=== PATIENT | female | born 1985 | race Caucasian/White ===

== ENCOUNTER 2019-04-17 12:59 | Emergency (ER) | payer BC ==
--- NOTE | 2019-04-17 13:18 | EDM.PDOC ---
ED HPI GENERAL MEDICAL PROBLEM - General Chief Complaint: ENT Problem Stated Complaint: EAR INFECTION Time Seen by Provider: 04/17/19 13:02 Source of Information: Reports: Patient History Limitations: Reports: No Limitations - History of Present Illness INITIAL COMMENTS - FREE TEXT/NARRATIVE: History of present illness: []Patient has had ear pain for 3 days and was seen in clinic and put on amoxicillin for an otitis media. She states her ear pain is not improving and is getting worse. She denies any fevers, chills or any other symptoms. Review of systems: As per history of present illness and below otherwise all systems reviewed and negative. Past medical history: As per history of present illness and as reviewed below otherwise noncontributory. Surgical history: As per history of present illness and as reviewed below otherwise noncontributory. Social history: No reported history of drug or alcohol abuse. Family history: As per history of present illness and as reviewed below otherwise noncontributory. Physical exam: General: Well developed, well nourished in NAD HEENT: Atraumatic, normocephalic, pupils reactive, negative for conjunctival pallor or scleral icterus, mucous membranes moist, throat clear, neck supple, nontender, trachea midline. TMs are clear she has no adenopathy there is no mastoid tenderness on the left mastoid. Lungs: Clear to auscultation, breath sounds equal bilaterally, chest nontender. Heart: S1S2, regular, negative for clicks, rubs, or JVD. Abdomen: NABS, Soft, nondistended, nontender. Negative for masses or hepatosplenomegaly. Negative for costovertebral tenderness. Pelvis: Stable nontender. Genitourinary: Deferred. Rectal: Deferred. Extremities: Atraumatic, negative for cords or calf pain. Neurovascular unremarkable. Neuro: Awake, alert, oriented. Cranial nerves II through XII unremarkable. Cerebellum unremarkable. Motor and sensory unremarkable throughout. Exam nonfocal. Skin:warm and dry Diagnostics: None Therapeutics: None ED Course: stAble Impression: Left ear pain Prescriptions: prednisone 5 days Plan: Take meds as directed, follow up with your primary care physician, return to ER if symptoms worsen or change. Definitive disposition and diagnosis as appropriate pending reevaluation and review of above. - Related Data Allergies Allergy/AdvReac Type Severity Reaction Status Date / Time carvedilol [From Coreg] Allergy Hives Verified 04/17/19 13:14 Home Meds: Home Meds predniSONE [Prednisone] 20 mg PO DAILY #5 tablet 04/17/19 [Rx] ED ROS ENT - Review of Systems Review Of Systems: See Below ED EXAM, ENT - Physical Exam Exam: See Below Departure - Departure Time of Disposition: 13:15 Disposition: Home, Self-Care 01 Condition: Good Clinical Impression: Left ear pain - Discharge Information *PRESCRIPTION DRUG MONITORING PROGRAM REVIEWED*: No *COPY OF PRESCRIPTION DRUG MONITORING REPORT IN PATIENT KIRILL: No Referrals: PCP,Unknown [Primary Care Provider] - Additional Instructions: The following information is given to patients seen in the emergency department who are being discharged to home. This information is to outline your options for follow-up care. We provide all patients seen in our emergency department with a follow-up referral. The need for follow-up, as well as the timing and circumstances, are variable depending upon the specifics of your emergency department visit. If you don't have a primary care physician on staff, we will provide you with a referral. We always advise you to contact your personal physician following an emergency department visit to inform them of the circumstance of the visit and for follow-up with them and/or the need for any referrals to a consulting specialist. The emergency department will also refer you to a specialist when appropriate. This referral assures that you have the opportunity for follow-up care with a specialist. All of these measure are taken in an effort to provide you with optimal care, which includes your follow-up. Under all circumstances we always encourage you to contact your private physician who remains a resource for coordinating your care. When calling for follow-up care, please make the office aware that this follow-up is from your recent emergency room visit. If for any reason you are refused follow-up, please contact the Emergency Department at and asked to speak to the emergency department charge nurse. Take meds as directed, follow up with your primary care physician, return to ER if symptoms worsen or change. Primary Care [address] [place] [id number]
== END 2019-04-17 13:37 | disposition home or self-care (01) ==
LOC: MW.ED 12:59
DX: H92.02 Otalgia, left ear (principal); Z79.899 Other long term (current) drug therapy; Z88.8 Allergy status to other drugs, medicaments and biological substances
CPT/HCPCS: 99282

== ENCOUNTER 2019-07-10 08:10 | Day surgery (SDC) | payer BC ==
--- NOTE | 2019-07-10 08:25 | EDM.PDOC ---
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 Review of systems: As per history of present illness and below otherwise all systems reviewed and negative. Past medical history: As per history of present illness and as reviewed below otherwise noncontributory. Surgical history: As per history of present illness and as reviewed below otherwise noncontributory. Social history: No reported history of drug or alcohol abuse. Family history: As per history of present illness and as reviewed below otherwise noncontributory. Physical exam: HEENT: Atraumatic, normocephalic, pupils reactive, negative for conjunctival pallor or scleral icterus, mucous membranes moist, throat clear, neck supple, nontender, trachea midline. Lungs: Clear to auscultation, breath sounds equal bilaterally, chest nontender. Heart: S1S2, regular, negative for clicks, rubs, or JVD. Abdomen: Soft, nondistended, nontender. Negative for masses or hepatosplenomegaly. Negative for costovertebral tenderness. Pelvis: Stable nontender. Genitourinary: Deferred. Rectal: Deferred. Extremities: Atraumatic, negative for cords or calf pain. Neurovascular unremarkable. Neuro: Awake, alert, oriented. Cranial nerves II through XII unremarkable. Cerebellum unremarkable. Motor and sensory unremarkable throughout. Exam nonfocal. Diagnostics: CBC quantitative beta PT/INR type and screen pelvic ultrasound Therapeutics: None Impression: #1 uterine mass #2 rising hCG Definitive disposition and diagnosis as appropriate pending reevaluation and review of above. - Related Data Allergies Allergy/AdvReac Type Severity Reaction Status Date / Time carvedilol [From Coreg] Allergy Hives Verified 07/10/19 08:24 Home Meds: Home Meds FLUoxetine HCl [Prozac] 40 mg PO DAILY 07/10/19 [History] Labetalol [Normodyne] 100 mg PO BID 07/10/19 [History] Past Medical History Cardiovascular History: Reports: Hypertension - Infectious Disease History Infectious Disease History: Reports: None Social & Family History - Family History Family Medical History: Noncontributory - Caffeine Use Caffeine Use: Reports: None ED ROS GENERAL - Review of Systems Review Of Systems: Comprehensive ROS is negative, except as noted in HPI. ED EXAM, GENERAL - Physical Exam Exam: See Below (See dictation) Course - Vital Signs Last Recorded V/S: Last Vital Signs Temp 36.3 C 07/10/19 08:26 Pulse 87 07/10/19 08:26 Resp 17 07/10/19 08:26 BP 142/88 H 07/10/19 08:26 Pulse Ox 98 07/10/19 08:26 - Orders/Labs/Meds Orders: Active Orders 24 hr Category Date Time Status Patient Status [ADT] Routine ADT 07/10/19 10:02 Active Antiembolic Devices [RC] PER UNIT ROUTINE Care 07/10/19 10:03 Active Verify Patient Consent Obtain [RC] PER UNIT ROUTINE Care 07/10/19 10:02 Active Vital Signs [RC] PER UNIT ROUTINE Care 07/10/19 10:02 Active TYPE AND SCREEN [BBK] Routine Lab 07/10/19 10:02 Ordered Sodium Chloride 0.9% [Normal Saline] Med 07/10/19 10:02 Active 10 ml IV ASDIRECTED PRN Sodium Chloride 0.9% [Saline Flush] Med 07/10/19 10:02 Active 10 ml FLUSH ASDIRECTED PRN Sodium Chloride 0.9% [Saline Flush] Med 07/10/19 10:02 Active 2.5 ml FLUSH ASDIRECTED PRN Peripheral IV Insertion Adult [OM.PC] Urgent Oth 07/10/19 10:02 Ordered Sequential Compression Device [OM.PC] Per Unit Routine Oth 07/10/19 10:02 Ordered Medication Orders Sodium Chloride (Saline Flush) 10 ml FLUSH ASDIRECTED PRN PRN Reason: Keep Vein Open Sodium Chloride (Saline Flush) 2.5 ml FLUSH ASDIRECTED PRN PRN Reason: Keep Vein Open Sodium Chloride (Normal Saline) 10 ml IV ASDIRECTED PRN PRN Reason: IV Use Labs: Laboratory Tests 07/10/19 07/10/19 07/10/19 Range/Units 08:32 08:32 08:32 WBC 9.57 (4.0-11.0) K/uL RBC 4.15 L (4.30-5.90) M/uL Hgb 12.3 (12.0-16.0) g/dL Hct 36.8 (36.0-46.0) % MCV 88.7 (80.0-98.0) fL MCH 29.6 (27.0-32.0) pg MCHC 33.4 (31.0-37.0) g/dL RDW Std Deviation 44.7 (28.0-62.0) fl RDW Coeff of Krissy 14 (11.0-15.0) % Plt Count 287 (150-400) K/uL MPV 10.00 (7.40-12.00) fL Add Manual Diff YES Neutrophils % (Manual) 59 (48.0-80.0) % Band Neutrophils % 7 % Lymphocytes % (Manual) 27 (16.0-40.0) % Monocytes % (Manual) 3 (0.0-15.0) % Eosinophils % (Manual) 2 (0.0-7.0) % Basophils % (Manual) 2 H (0.0-1.5) % Nucleated RBC % 0.0 /100WBC Absolute Seg Neuts 5.6 (1.4-5.7) Band Neutrophils # 0.7 Lymphocytes # (Manual) 2.6 H (0.6-2.4) Monocytes # (Manual) 0.3 (0.0-0.8) Eosinophils # (Manual) 0.2 (0.0-0.7) Basophils # (Manual) 0.2 H (0.0-0.1) Nucleated RBCs # 0 K/uL INR 0.96 HCG, Quant 54002.0 mIU/mL Blood Type Antibody Screen 07/10/19 Range/Units 08:32 WBC (4.0-11.0) K/uL RBC (4.30-5.90) M/uL Hgb (12.0-16.0) g/dL Hct (36.0-46.0) % MCV (80.0-98.0) fL MCH (27.0-32.0) pg MCHC (31.0-37.0) g/dL RDW Std Deviation (28.0-62.0) fl RDW Coeff of Krissy (11.0-15.0) % Plt Count (150-400) K/uL MPV (7.40-12.00) fL Add Manual Diff Neutrophils % (Manual) (48.0-80.0) % Band Neutrophils % % Lymphocytes % (Manual) (16.0-40.0) % Monocytes % (Manual) (0.0-15.0) % Eosinophils % (Manual) (0.0-7.0) % Basophils % (Manual) (0.0-1.5) % Nucleated RBC % /100WBC Absolute Seg Neuts (1.4-5.7) Band Neutrophils # Lymphocytes # (Manual) (0.6-2.4) Monocytes # (Manual) (0.0-0.8) Eosinophils # (Manual) (0.0-0.7) Basophils # (Manual) (0.0-0.1) Nucleated RBCs # K/uL INR HCG, Quant mIU/mL Blood Type O POSITIVE Antibody Screen NEGATIVE Meds: Medications Generic Name Dose Route Start Last Admin Trade Name Freq PRN Reason Stop Dose Admin Sodium Chloride 10 ml 07/10/19 10:02 Saline Flush FLUSH ASDIRECTED PRN Keep Vein Open Sodium Chloride 2.5 ml 07/10/19 10:02 Saline Flush FLUSH ASDIRECTED PRN Keep Vein Open Sodium Chloride 10 ml 07/10/19 10:02 Normal Saline IV ASDIRECTED PRN IV Use Discontinued Medications Generic Name Dose Route Start Last Admin Trade Name Freq PRN Reason Stop Dose Admin Doxycycline Hyclate 200 mg 07/10/19 10:04 Vibramycin PO 07/10/19 10:05 ONETIME ONE Departure - Departure Time of Disposition: 10:11 Disposition: Still A Patient 30 Condition: Good Clinical Impression: Uterine mass - Discharge Information Referrals: Marianne Huerta MD [Primary Care Provider] - Forms: ED Department Discharge
--- NOTE | 2019-07-10 09:50 | US ---
INDICATION: Cramping in known failed . Comparison: No comparison studies are available. TECHNIQUE: Real-time dean-scale imaging of the pelvis was performed. FINDINGS: Presence of intrauterine gestational sac measuring 2.7 cm. There is no pole or yolk sac seen in the gestational sac. Echogenic material within the gestational sac may represent hemorrhage and/or debris. Both ovaries are seen and appear unremarkable. Normal arterial venous blood flow ovaries. No adnexal mass or free fluid visualized. IMPRESSION: 1. 2.7 cm intrauterine gestational sac. No pole or yolk sac seen heterogeneous material in the gestational sac may represent hemorrhage and/or debris. Findings most likely would reflect a failed . Ovaries are seen and appear unremarkable. No adnexal mass or free fluid. Dictated by Gladys Holbrook MD @ Jul 10 2019 9:44AM Signed by Dr. Gladys Holbrook @ Jul 10 2019 9:48AM
[2019-07-10] MEDS ORDERED: Sodium Chloride 0.9% 10 ML SDV IV PRN (10:02)
[2019-07-10] MEDS ORDERED: Sodium Chloride 0.9% 10 ML Syringe FLUSH PRN (10:02)
[2019-07-10] MEDS ORDERED: Sodium Chloride 0.9% 2.5 ML Syringe FLUSH PRN (10:02)
[2019-07-10] MEDS ORDERED: Doxycycline 100 MG Cap PO ONE ×2 (10:04→11:53)
[2019-07-10] MEDS ORDERED: Propofol 200 MG/20 ML SDV ONE (10:28)
[2019-07-10] MEDS ORDERED: fentaNYL 100 MCG/2 ML SDV ONE ×2 (10:28→11:43)
[2019-07-10] MEDS ORDERED: Midazolam 1 MG/ML 2 ML SDV ONE (10:28)
[2019-07-10] MEDS ORDERED: Dexamethasone 4 MG/ML 5 ML MDV ONE (10:30)
[2019-07-10] MEDS ORDERED: Lidocaine 2% 5 ML SDV ONE (10:30)
[2019-07-10] MEDS ORDERED: Ketorolac 30 MG/ML SDV ONE (10:30)
[2019-07-10] MEDS ORDERED: Ondansetron 4 MG/2 ML SDV ONE (10:30)
[2019-07-10] MEDS ORDERED: Glycopyrrolate 0.2 MG/ML SDV ONE (10:30)
[2019-07-10] MEDS ORDERED: fentaNYL 100 MCG/2 ML SDV IVPUSH PRN (10:40)
[2019-07-10] MEDS ORDERED: Ondansetron 4 MG/2 ML SDV IVPUSH PRN (10:40)
--- NOTE | 2019-07-10 10:40 | PCM.PREANE ---
Preanesthetic Assessment - Anesthesia/Transfusion/Family Hx Anesthesia History: Prior Anesthesia Without Reaction Family History of Anesthesia Reaction: No - Review of Systems General: No Symptoms Pulmonary: No Symptoms Cardiovascular: No Symptoms, Other Neurological: No Symptoms Other: Reports: Anxiety - Physical Assessment NPO Status Date: 07/10/19 NPO Status Time: 00:05 Vital Signs: Last Vital Signs Temp 36.3 C 07/10/19 08:26 Pulse 87 07/10/19 08:26 Resp 17 07/10/19 08:26 BP 142/88 H 07/10/19 08:26 Pulse Ox 98 07/10/19 08:26 Height: 1.63 m Weight: 108.862 kg ASA Class: 2E - Lab Values: Laboratory Last Values WBC 9.57 K/uL (4.0-11.0) 07/10/19 08:32 RBC 4.15 M/uL (4.30-5.90) L 07/10/19 08:32 Hgb 12.3 g/dL (12.0-16.0) 07/10/19 08:32 Hct 36.8 % (36.0-46.0) 07/10/19 08:32 MCV 88.7 fL (80.0-98.0) 07/10/19 08:32 MCH 29.6 pg (27.0-32.0) 07/10/19 08:32 MCHC 33.4 g/dL (31.0-37.0) 07/10/19 08:32 RDW Std Deviation 44.7 fl (28.0-62.0) 07/10/19 08:32 RDW Coeff of Krissy 14 % (11.0-15.0) 07/10/19 08:32 Plt Count 287 K/uL (150-400) 07/10/19 08:32 MPV 10.00 fL (7.40-12.00) 07/10/19 08:32 Add Manual Diff YES 07/10/19 08:32 Neutrophils % (Manual) 59 % (48.0-80.0) 07/10/19 08:32 Band Neutrophils % 7 % 07/10/19 08:32 Lymphocytes % (Manual) 27 % (16.0-40.0) 07/10/19 08:32 Monocytes % (Manual) 3 % (0.0-15.0) 07/10/19 08:32 Eosinophils % (Manual) 2 % (0.0-7.0) 07/10/19 08:32 Basophils % (Manual) 2 % (0.0-1.5) H 07/10/19 08:32 Nucleated RBC % 0.0 /100WBC 07/10/19 08:32 Absolute Seg Neuts 5.6 (1.4-5.7) 07/10/19 08:32 Band Neutrophils # 0.7 07/10/19 08:32 Lymphocytes # (Manual) 2.6 (0.6-2.4) H 07/10/19 08:32 Monocytes # (Manual) 0.3 (0.0-0.8) 07/10/19 08:32 Eosinophils # (Manual) 0.2 (0.0-0.7) 07/10/19 08:32 Basophils # (Manual) 0.2 (0.0-0.1) H 07/10/19 08:32 Nucleated RBCs # 0 K/uL 07/10/19 08:32 INR 0.96 07/10/19 08:32 HCG, Quant 72828.0 mIU/mL 07/10/19 08:32 Blood Type O POSITIVE 07/10/19 08:32 Antibody Screen NEGATIVE 07/10/19 08:32 - Allergies Allergies/Adverse Reactions: Allergies Allergy/AdvReac Type Severity Reaction Status Date / Time carvedilol [From Coreg] Allergy Hives Verified 07/10/19 08:24 - Anesthesia Plan Beta Jean Pierre: Labetalol - Acknowledgements Anesthesia Type Planned: General Anesthesia Pt an Appropriate Candidate for the Planned Anesthesia: Yes Alternatives and Risks of Anesthesia Discussed w Pt/Guardian: Yes Pt/Guardian Understands and Agrees with Anesthesia Plan: Yes Additional Comments: History of hypertension treated with labetolol. History of anxiety. PreAnesthesia Questionnaire - Past Health History Medical/Surgical History: Denies Medical/Surgical History Cardiovascular History: Reports: Hypertension - Infectious Disease History Infectious Disease History: Reports: None - SUBSTANCE USE Smoking Status *Q: Never Smoker - HOME MEDS Home Medications: Home Meds FLUoxetine HCl [Prozac] 40 mg PO DAILY 07/10/19 [History] Labetalol [Normodyne] 100 mg PO BID 07/10/19 [History] - CURRENT (IN HOUSE) MEDS Current Meds: Current Medications Sodium Chloride (Saline Flush) 10 ml FLUSH ASDIRECTED PRN PRN Reason: Keep Vein Open Sodium Chloride (Saline Flush) 2.5 ml FLUSH ASDIRECTED PRN PRN Reason: Keep Vein Open Sodium Chloride (Normal Saline) 10 ml IV ASDIRECTED PRN PRN Reason: IV Use Discontinued Medications Dexamethasone (Dexamethasone) Confirm Administered Dose 20 mg .ROUTE .STK-MED ONE Stop: 07/10/19 10:31 Doxycycline Hyclate (Vibramycin) 200 mg PO ONETIME ONE Stop: 07/10/19 10:05 Fentanyl (Sublimaze) Confirm Administered Dose 100 mcg .ROUTE .STK-MED ONE Stop: 07/10/19 10:29 Glycopyrrolate (Robinul) Confirm Administered Dose 0.2 mg .ROUTE .STK-MED ONE Stop: 07/10/19 10:31 Ketorolac Tromethamine (Toradol) Confirm Administered Dose 30 mg .ROUTE .STK- MED ONE Stop: 07/10/19 10:31 Lidocaine (Xylocaine-Mpf 2%) Confirm Administered Dose 5 ml .ROUTE .STK-MED ONE Stop: 07/10/19 10:31 Midazolam HCl (Versed 1 Mg/Ml) Confirm Administered Dose 2 mg .ROUTE .STK-MED ONE Stop: 07/10/19 10:29 Ondansetron HCl (Zofran) Confirm Administered Dose 4 mg .ROUTE .STK-MED ONE Stop: 07/10/19 10:31 Propofol (Diprivan 20 Ml) Confirm Administered Dose 200 mg .ROUTE .STK-MED ONE Stop: 07/10/19 10:29 Succinylcholine Chloride (Succinylcholine Chloride) Confirm Administered Dose 200 mg .ROUTE .STK-MED ONE Stop: 07/10/19 10:31
[2019-07-10] MEDS ORDERED: Sodium Chloride 0.9% 1,000 ML IV ONE (10:45)
[2019-07-10] MEDS ORDERED: Acetaminophen/HYDROcodone 325-5 MG Tab PO PRN (11:52)
--- NOTE | 2019-07-10 11:56 | PCM.OPNOTE ---
- General Post-Op/Procedure Note Date of Surgery/Procedure: 07/10/19 Operative Procedure(s): Dilatation , suction and curettage Findings: Moderate product of conception Pre Op Diagnosis: Missed r/o molar Post-Op Diagnosis: Missed , r/o molar Primary Surgeon: Marianne Huerta Anesthesia Provider: Faustino Thompson Fluid Replacement, Intraop: 800 Output, Urine Amount: 0 EBL in mLs: 100 Complications: None Condition: Good Free Text/Narrative:: 9 week sized uterus
--- NOTE | 2019-07-10 12:24 | PCM.POSTAN ---
POST ANESTHESIA ASSESSMENT - MENTAL STATUS Mental Status: Alert - VITAL SIGNS Vital Signs: Last Vital Signs Temp 36.9 C 07/10/19 11:52 Pulse 101 H 07/10/19 12:07 Resp 12 07/10/19 12:07 BP 126/67 07/10/19 12:07 Pulse Ox 100 07/10/19 12:07 - RESPIRATORY Respiratory Status: Respiratory Rate WNL - CARDIOVASCULAR CV Status: Pulse Rate WNL - GASTROINTESTINAL GI Status: No Symptoms - POST OP HYDRATION Hydration Status: Adequate & Stable
--- NOTE | 2019-07-10 13:48 | OR ---
SURGEON: ROSY UGALDE DATE OF PROCEDURE:07/10/2019 PREOPERATIVE DIAGNOSIS: 34-year-old with missed r/o molar . POSTOPERATIVE DIAGNOSIS: 34-year-old with missed r/o molar . PROCEDURE: Suction dilatation and curettage. IV FLUIDS: 800. ESTIMATED BLOOD LOSS: 100. URINE OUTPUT: 0 COMPLICATIONS: None. NOTES AND FINDINGS: Examination under anesthesia showed about 9- to 10-week size uterus. Moderate products of conception were retrieved from the D and C. BRIEF HISTORY: The patient is a 34-year-old who is being followed for of unknown viability. The patient had an ultrasound that showed intrauterine gestational sac with a complex structure within the uterus. Beta-hCG was done, which was rising appropriately. She had a repeat ultrasound done, which still showed the same finding. The patient then called a week after and said she was having severe cramping. Ultrasound was done. At this point, there was just a complex structure within the uterus that was found. As a result of this, the patient was offered suction D and C. The patient was explained the risks, benefits, and alternatives, and she decided to proceed. PROCEDURE IN DETAIL: The patient was taken to the operating room where general anesthesia was done without difficulty. She was prepared and draped in the dorsal lithotomy position with Gurinder stirrups. Sterile speculum was used to expose the cervix, and the cervix was dilated to accommodate the 8 mm curved curette. The suction was done with outward circular motion. The product of conception was evacuated from the uterus. Then, the size 4 curette was used to curette all the 4 villasenor of the uterus. Again, the suction was then placed again to evacuate the products after which the Allis was removed. The speculum was removed. Hemostasis was noted. The patient tolerated the procedure well and was left OR in stable condition. The patient received doxycycline before and after the procedure. IGNACIA LUNA /[id number] LEATHA
[2019-07-10] MEDS ORDERED: Ketamine 500 mg/10 ML MDV ONE (17:16)
== END 2019-07-10 13:59 | disposition home or self-care (01) ==
LOC: MW.ED 08:10 → MW.SDS 10:28 → MW.OB 12:08 → MW.SDS 13:59
PROVIDERS: ATTEND Obstetrics & Gynecology
DX: O02.1 Missed abortion (principal); I10 Essential (primary) hypertension; Z79.899 Other long term (current) drug therapy; Z79.82 Long term (current) use of aspirin; Z88.8 Allergy status to other drugs, medicaments and biological substances
CPT/HCPCS: 36415; 59820; 76801; 84702; 85025; 85610; 86850; 86900; 86901; A9270; J0330; J1100; J1885; J2001; J2250; J2405; J2704; J3010; J3490; J7040; 88305; 99285; 99285-25; J7030

== ENCOUNTER 2019-10-21 07:40 | Day surgery (SDC) | payer BC ==
[~2019-10-21 07:40] MED LIST: Lactated Ringers 1,000 ML IV SCH; Sodium Chloride 0.9% 10 ML SDV IV PRN; Sodium Chloride 0.9% 10 ML Syringe FLUSH PRN; Sodium Chloride 0.9% 2.5 ML Syringe FLUSH PRN
--- NOTE | 2019-10-21 08:34 | PCM.PREANE ---
Preanesthetic Assessment - Anesthesia/Transfusion/Family Hx Anesthesia History: Prior Anesthesia Without Reaction Family History of Anesthesia Reaction: No Transfusion History: No Prior Transfusion(s) Intubation History: Unknown - Review of Systems General: No Symptoms Pulmonary: No Symptoms Cardiovascular: No Symptoms Gastrointestinal: No Symptoms Neurological: No Symptoms Other: Reports: None - Physical Assessment Height: 5 ft 4 in Weight: 113.398 kg ASA Class: 2 Mental Status: Alert & Oriented x3 Airway Class: Mallampati = 2 Dentition: Reports: Normal Dentition Thyro-Mental Finger Breadths: 3 Mouth Opening Finger Breadths: 3 ROM/Head Extension: Full Lungs: Clear to Auscultation, Normal Respiratory Effort Cardiovascular: Regular Rate, Regular Rhythm - Allergies Allergies/Adverse Reactions: Allergies Allergy/AdvReac Type Severity Reaction Status Date / Time carvedilol [From Coreg] Allergy Hives Verified 10/18/19 08:58 - Blood Blood Available: No - Anesthesia Plan Pre-Op Medication Ordered: None - Acknowledgements Anesthesia Type Planned: General Anesthesia Pt an Appropriate Candidate for the Planned Anesthesia: Yes Alternatives and Risks of Anesthesia Discussed w Pt/Guardian: Yes Pt/Guardian Understands and Agrees with Anesthesia Plan: Yes PreAnesthesia Questionnaire - Past Health History Medical/Surgical History: Denies Medical/Surgical History HEENT History: Reports: Other (See Below) Other HEENT History: wears glasses Cardiovascular History: Reports: Hypertension 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: Polycystic Ovaries, Psychiatric History: Reports: Anxiety Endocrine/Metabolic History: Reports: Obesity/BMI 30+ (BMI 42.9) - Infectious Disease History Infectious Disease History: Reports: None - Past Surgical History Head Surgeries/Procedures: Reports: None Female Surgical History: Reports: Section (x2), D&C - SUBSTANCE USE Smoking Status *Q: Never Smoker Recreational Drug Use History: No - HOME MEDS Home Medications: Home Meds FLUoxetine HCl [Prozac] 40 mg PO DAILY 07/10/19 [History] Labetalol [Normodyne] 100 mg PO BID 10/18/19 [History] No122/Iron/Folic Acid [ Multi Tablet] 1 tab PO DAILY 10/18/19 [ History] - CURRENT (IN HOUSE) MEDS Current Meds: Current Medications Lactated Ringer's (Ringers, Lactated) 1,000 mls @ 500 mls/hr IV BOLUS MANUEL Last Admin: 10/21/19 08:15 Dose: 500 mls/hr Sodium Chloride (Saline Flush) 10 ml FLUSH ASDIRECTED PRN PRN Reason: Keep Vein Open Sodium Chloride (Saline Flush) 2.5 ml FLUSH ASDIRECTED PRN PRN Reason: Keep Vein Open Sodium Chloride (Normal Saline) 10 ml IV ASDIRECTED PRN PRN Reason: IV Use Sodium Chloride (Saline Flush) 10 ml FLUSH ASDIRECTED PRN PRN Reason: Keep Vein Open Sodium Chloride (Saline Flush) 2.5 ml FLUSH ASDIRECTED PRN PRN Reason: Keep Vein Open Sodium Chloride (Normal Saline) 10 ml IV ASDIRECTED PRN PRN Reason: IV Use
[2019-10-21] MEDS ORDERED: Ondansetron 4 MG/2 ML SDV ONE (09:04)
[2019-10-21] MEDS ORDERED: Midazolam 1 MG/ML 2 ML SDV ONE (09:04)
[2019-10-21] MEDS ORDERED: Propofol 200 MG/20 ML SDV ONE (09:04)
[2019-10-21] MEDS ORDERED: fentaNYL 100 MCG/2 ML SDV ONE ×2 (09:04→09:28)
[2019-10-21] MEDS ORDERED: Dexamethasone 4 MG/ML 5 ML MDV ONE (09:28)
[2019-10-21] MEDS ORDERED: fentaNYL 100 MCG/2 ML SDV IVPUSH PRN (09:40)
[2019-10-21] MEDS ORDERED: Ketorolac 30 MG/ML SDV ONE (09:45)
--- NOTE | 2019-10-21 10:13 | PCM.OPNOTE ---
- General Post-Op/Procedure Note Date of Surgery/Procedure: 10/21/19 Operative Procedure(s): Hysteroscopy D & C Findings: Normal sized anteverted uterus Endometrium appears normal with the right side with more proliferative endometrium noted , no distinct lesion noted Pre Op Diagnosis: Abnormal uterine bleeding. Suspected endometrial polyp Post-Op Diagnosis: Abnormal uterine bleeding Anesthesia Technique: General ET Tube Primary Surgeon: Marianne Huerta Anesthesia Provider: Carlos Pink Pathology: Endometrial polyp Fluid Replacement, Intraop: 800 EBL in mLs: 5 Complications: None Condition: Good
--- NOTE | 2019-10-21 10:14 | PCM.POSTAN ---
POST ANESTHESIA ASSESSMENT - MENTAL STATUS Mental Status: Alert, Oriented - VITAL SIGNS Vital Signs: Last Vital Signs Temp 36.4 C 10/21/19 09:56 Pulse 75 10/21/19 10:11 Resp 15 10/21/19 10:11 BP 164/88 H 10/21/19 10:11 Pulse Ox 96 10/21/19 10:11 - RESPIRATORY Respiratory Status: Respiratory Rate WNL, Airway Patent, O2 Saturation Stable - CARDIOVASCULAR CV Status: Pulse Rate WNL, Blood Pressure Stable - GASTROINTESTINAL GI Status: No Symptoms - PAIN Pain Score: 0 - POST OP HYDRATION Hydration Status: Adequate & Stable
[2019-10-21] MEDS ORDERED: Acetaminophen/HYDROcodone 325-5 MG Tab PO PRN (10:17)
--- NOTE | 2019-10-21 13:00 | PCM48HPAN ---
Post Anesthesia Note - EVALUATION WITHIN 48HRS OF ANESTHETIC Vital Signs in Normal Range: Yes Patient Participated in Evaluation: Yes Respiratory Function Stable: Yes Airway Patent: Yes Cardiovascular Function Stable: Yes Hydration Status Stable: Yes Pain Control Satisfactory: Yes Nausea and Vomiting Control Satisfactory: Yes Mental Status Recovered: Yes Vital Signs: Last Vital Signs Temp 36 C L 10/21/19 10:20 Pulse 76 10/21/19 10:50 Resp 16 10/21/19 10:50 BP 146/83 H 10/21/19 10:50 Pulse Ox 96 10/21/19 10:50 - COMMENTS/OBSERVATIONS Free Text/Narrative:: No anesthesia problems
--- NOTE | 2019-10-21 15:18 | OR ---
SURGEON: ROSY UGALDE DATE OF PROCEDURE:10/21/2019 PREOPERATIVE DIAGNOSIS: A 34-year-old with abnormal uterine bleeding. POSTOPERATIVE DIAGNOSIS: A 34-year-old with abnormal uterine bleeding. PROCEDURE: Hysteroscopy, D and C. ESTIMATED BLOOD LOSS: 5 mL. ANESTHESIA: General. COMPLICATION: None. FLUID DEFICIT: 350 of NS. BRIEF HISTORY: She is 34-year-old who had a history of D and C in July for missed AB. She had normal period in August. In September, she said she had some bleeding and continued to have spotting and bleeding never stopped, so the patient had an ultrasound done which showed some echogenicity in the right cornua of the uterus. As a result of this, a saline ultrasound was done, like a 1.5 cm echogenicity was found in the endometrial cavity. I am unsure whether it had an attachment to the endometrium. As a result of this, the patient was counseled, consented for a D and C, hysteroscopy. She understood risks, benefits, and alternatives, and she decided to proceed. FINDINGS OF THE PROCEDURE: A normal-size anteverted uterus. Endometrial cavity looked abnormal. However, there was just some more proliferative tissue around the right cornua of the uterus. No distinct polyp noted. DESCRIPTION OF PROCEDURE: The patient was taken to the operating room where general anesthesia was performed without difficulty. She was prepared and draped in the dorsal lithotomy position with Gurinder stirrups. The uterus was examined and above-noted finding was noted. Then, the speculum was used to expose the cervix and the anterior lip of the cervix was grasped with the Allis forceps. The uterus was dilated to accommodate the MyoSure hysteroscope. The MyoSure hysteroscope was then inserted through the cervical os to visualize the endometrial cavity. Some irregularity was noted on the right side. There was no discrete lesion noted and the MyoSure was then used to currette the excess endometrium around the right cornua. Then sharp curetting was done around all quadrant of the uterine cavity. The specimen was sent to pathology. The Allis was removed. The speculum was removed. All instrument and pad counts were correct x2. The patient tolerated the procedure well and was sent to PACU in stable condition . IGNACIA / JEREMY /[id number]
== END 2019-10-21 11:20 | disposition home or self-care (01) ==
LOC: MW.SDS 07:40
PROVIDERS: ATTEND Obstetrics & Gynecology
DX: O72.2 Delayed and secondary postpartum hemorrhage (principal); I10 Essential (primary) hypertension; F17.290 Nicotine dependence, other tobacco product, uncomplicated; Z88.8 Allergy status to other drugs, medicaments and biological substances; Z87.59 Personal history of other complications of pregnancy, childbirth and the puerperium; Z87.42 Personal history of other diseases of the female genital tract; Z79.899 Other long term (current) drug therapy; Z98.890 Other specified postprocedural states
CPT/HCPCS: 36415; 59812; 81025; 85027; 86850; 86900; 86901; J1100; J1885; J2001; J2250; J2405; J2704; J3010; J7120; 88305

== ENCOUNTER 2022-08-05 05:28 | Inpatient (IN) | payer BC ==
[2022-08-05] MEDS ORDERED: Tranexamic Acid 1,000 MG in Sodium Chloride 0.9% 100 ML IV PRN (05:31)
[2022-08-05] MEDS ORDERED: Citric Acid/Sodium Citrate Solution 30 ML Cup PO ONE (05:31)
[2022-08-05] MEDS ORDERED: Water For Irrigation,Sterile 1,000 ML Container IRR PRN (05:31)
[2022-08-05] MEDS ORDERED: Sodium Chloride 0.9% 2.5 ML Syringe FLUSH PRN (05:31)
[2022-08-05] MEDS ORDERED: Lidocaine 1% 50 ML MDV INJECT PRN (05:31)
[2022-08-05] MEDS ORDERED: Sodium Chloride 0.9% 10 ML Syringe FLUSH PRN (05:31)
[2022-08-05] MEDS ORDERED: Sodium Chloride 0.9% 20 ML SDV IV PRN (05:31)
[2022-08-05] MEDS ORDERED: Methylergonovine 0.2 MG/1 ML Amp IM PRN (05:31)
[2022-08-05] MEDS ORDERED: ceFAZolin 2 GM in Premix Bag 1 BAG IV ONE (05:31)
[2022-08-05] MEDS ORDERED: Ondansetron 4 MG/2 ML SDV IVPUSH PRN ×2 (05:31→10:08)
[2022-08-05] MEDS ORDERED: Butorphanol 1 MG/ML SDV IVPUSH PRN (05:31)
[2022-08-05] MEDS ORDERED: Carboprost Tromethamine 250 MCG/1 ML Amp IM PRN (05:31)
[2022-08-05] MEDS ORDERED: Misoprostol 200 MCG Tab PO PRN (05:31)
[2022-08-05] MEDS ORDERED: Lactated Ringers 1,000 ML IV SCH ×2 (05:45→09:30)
[2022-08-05] MEDS ORDERED: Oxytocin/0.9 % Sodium Chloride 30 UNIT/500 ML BAG IV SCH ×2 (05:45)
[2022-08-05] MEDS: Lactated Ringers 1,000 ML IV SCH ×2 (06:12→07:13)
[2022-08-05] MEDS ORDERED: Bupivacaine 0.5% 10 ML SDV ONE (07:12)
[2022-08-05] MEDS ORDERED: Dexmedetomidine 200 MCG/2 ML SDV ONE (07:12)
[2022-08-05] MEDS ORDERED: Oxytocin 10 Units/1 ML SDV ONE (07:12)
[2022-08-05] MEDS ORDERED: ceFAZolin 1 GM Vial ONE (07:12)
[2022-08-05] MEDS ORDERED: Phenylephrine 1% 10 MG/ML SDV ONE (07:12)
[2022-08-05] MEDS ORDERED: Dexamethasone 4 MG/ML 5 ML MDV ONE (07:12)
[2022-08-05] MEDS ORDERED: Water For Injection, Sterile 40 ML ONE (07:12)
[2022-08-05] MEDS ORDERED: Ropivacaine 0.5% 5 MG/ML 30 ML SDV ONE (07:12)
[2022-08-05] MEDS ORDERED: Ondansetron 4 MG/2 ML SDV ONE (07:12)
[2022-08-05] MEDS ORDERED: Morphine PF 10 MG/10 ML SDV ONE (07:24)
[2022-08-05] MEDS ORDERED: Lanolin 100% Cream 7 GM Tube TOP PRN (09:26)
[2022-08-05] MEDS ORDERED: Ibuprofen 800 MG Tab PO PRN (09:26)
[2022-08-05] MEDS ORDERED: Acetaminophen/oxyCODONE 325-5 MG Tab PO PRN ×2 (09:26)
[2022-08-05] MEDS ORDERED: Bisacodyl 10 MG Supp RECTAL PRN (09:26)
[2022-08-05] MEDS ORDERED: Misoprostol 200 MCG Tab RECTAL PRN (09:26)
[2022-08-05] MEDS ORDERED: diphenhydrAMINE 50 MG/ML SDV IVPUSH PRN ×2 (09:26→10:08)
[2022-08-05] MEDS ORDERED: Naloxone 0.4 MG/ML SDV IVPUSH PRN (10:08)
[2022-08-05] MEDS ORDERED: Nalbuphine HCl 10 MG/ 1ML Amp IVPUSH PRN (10:10)
[2022-08-05] MEDS: Ketorolac 30 MG/ML SDV IVPUSH SCH ×2 (12:00→17:46)
[2022-08-05] MEDS: Docusate Sodium 100 MG Cap PO SCH (20:57)
[2022-08-06] MEDS: Ketorolac 30 MG/ML SDV IVPUSH SCH ×3 (00:13→11:33)
[2022-08-06 06:11] LABS: CARBON DIOXIDE,CO2 22.5 mmol/L (21.0-32.0); POTASSIUM,K 3.9 mmol/L (3.5-5.1)
[2022-08-06] MEDS: Docusate Sodium 100 MG Cap PO SCH ×3 (07:56→20:51)
[2022-08-07] MEDS: Docusate Sodium 100 MG Cap PO SCH (08:18)
== END 2022-08-07 10:50 | disposition home or self-care (01) | DRG 540 ==
LOC: MW.OB 05:28
PROVIDERS: ADMIT Obstetrics & Gynecology; ATTEND Obstetrics & Gynecology
PROC: 10D00Z1 Extraction of Products of Conception, Low, Open Approach (ICD-10-PCS; principal; 2022-08-05)
DX: O34.211 Maternal care for low transverse scar from previous cesarean delivery (principal); O99.62 Diseases of the digestive system complicating childbirth; K21.9 Gastro-esophageal reflux disease without esophagitis; O99.214 Obesity complicating childbirth; Z20.822 Contact with and (suspected) exposure to COVID-19; O10.92 Unspecified pre-existing hypertension complicating childbirth; Z37.0 Single live birth; Z3A.39 39 weeks gestation of pregnancy
CPT/HCPCS: 01961; 36415; 51702; 59025; 64488; 80053; 82803; 85027; 86780; 86850; 86900; 86901; A9270-GY; J0690; J1100; J1885; J2274; J2370; J2405; J2590; J2795; J3490; J7120; U0002

== ENCOUNTER 2024-09-12 13:44 | Observation (INO) | payer BC ==
[2024-09-12] MEDS ORDERED: Misoprostol 200 MCG Tab RECTAL PRN (14:21)
[2024-09-12] MEDS ORDERED: Methylergonovine 0.2 MG/1 ML Amp IM PRN (14:21)
[2024-09-12] MEDS ORDERED: Sodium Chloride 0.9% 2.5 ML Syringe FLUSH PRN ×2 (14:21→21:13)
[2024-09-12] MEDS ORDERED: Sodium Chloride 0.9% 20 ML SDV IV PRN ×2 (14:21→21:13)
[2024-09-12] MEDS ORDERED: Misoprostol 200 MCG Tab PO PRN (14:21)
[2024-09-12] MEDS ORDERED: Carboprost Tromethamine 250 MCG/1 mL Vial IM PRN (14:21)
[2024-09-12] MEDS ORDERED: Tranexamic Acid in NACL,ISO-OS 1,000 MG in Premix Bag 1 BAG IV PRN (14:21)
[2024-09-12] MEDS ORDERED: Water For Irrigation,Sterile 1,000 ML Container IRR PRN (14:21)
[2024-09-12] MEDS ORDERED: Butorphanol 2 MG/ML SDV IVPUSH PRN (14:21)
[2024-09-12] MEDS ORDERED: Lidocaine 1% 50 ML MDV INJECT PRN (14:21)
[2024-09-12] MEDS ORDERED: Sodium Chloride 0.9% 10 ML Syringe FLUSH PRN ×2 (14:21→21:13)
[2024-09-12] MEDS ORDERED: Oxytocin/0.9 % Sodium Chloride 30 UNIT/500 ML BAG IV SCH (14:30)
[2024-09-12 14:37] LABS: HEMATOCRIT 33.3 % (37.0-47.0); HEMOGLOBIN 11.7 g/dL (12.0-16.0); MEAN CORPUSCULAR HEMOGLOBIN 29.8 pg (28.0-32.0); MEAN CORPUSCULAR HGB CONC 35.1 g/dL (32.0-36.0); MEAN CORPUSCULAR VOLUME 84.9 fL (83.0-99.0); MEAN PLATELET VOLUME 11.3 fL (9.4-12.3); PLATELET COUNT,PLT 282 K/uL (150-400); RED BLOOD CELL COUNT 3.92 M/uL (4.10-5.30); WHITE BLOOD CELL COUNT,WBC 10.14 K/uL (3.9-11.3)
[2024-09-12] MEDS: Betamethasone Acetate/Betamethasone Sod Phosphate 6 MG/1 ML MDV IM SCH (14:47)
[2024-09-12 15:05] LABS: CREATININE,URINE RAND 165.2 mg/dL; PROTEIN CREATININE RATIO,URINE 0.2; PROTEIN,URINE RANDOM 34.5 mg/dL (<11.9)
[2024-09-12 15:06] LABS: ALBUMIN 2.4 g/dL (3.4-5.0); BILIRUBIN TOTAL 0.5 mg/dL (0.2-1.0); CARBON DIOXIDE,CO2 19.9 mmol/L (21.0-32.0); CREATININE 0.6 mg/dL (0.6-1.0); EST CRCL DRUG DOSING (CG) 110.86 mL/min; POTASSIUM,K 4.4 mmol/L (3.5-5.1); PROTEIN TOTAL,TP 6.8 g/dL (6.4-8.2)
[2024-09-12 15:13] LABS: A/G RATIO 0.6 (0.9-1.6)
[2024-09-12] MEDS ORDERED: Calcium Gluconate 10% 1 GM/10 ML SDV IV PRN (21:13)
[2024-09-12] MEDS: Labetalol 100 MG/20 ML MDV ONE (21:23)
[2024-09-12] MEDS: Lactated Ringers 1,000 ML IV SCH (21:30)
[2024-09-12] MEDS: Magnesium Sulfate/Water Premix 4 GM in Premix Bag 1 BAG IV ONE (21:32)
[2024-09-12] MEDS: Magnesium Sulfate/Water Premix 20 GM/500 ML BAG IV SCH (21:43)
[2024-09-12] MEDS: Labetalol 100 MG/20 ML MDV IVPUSH PRN (22:16)
[2024-09-13 11:00] LABS: GROUP B STREP BY PCR NEGATIVE (NEGATIVE)
== END 2024-09-12 23:42 ==
LOC: MW.OB 13:44
PROVIDERS: ADMIT Obstetrics & Gynecology; ATTEND Obstetrics & Gynecology
DX: O11.3 Pre-existing hypertension with pre-eclampsia, third trimester (principal); O10.013 Pre-existing essential hypertension complicating pregnancy, third trimester; Z3A.35 35 weeks gestation of pregnancy
CPT/HCPCS: 59025; 80053; 82570; 84156; 85027; 86592; 86850; 86900; 86901; 87653; J0702; J1920; J3475; J7120; 36415